=== PATIENT | male | born 1990 | race Caucasian/White ===

== ENCOUNTER 2025-02-24 00:50 | Emergency (ER) | payer OTHER ==
[2025-02-24] MEDS ORDERED: Midazolam In 0.9 % NaCl/PF 100 ML IV SCH (01:15)
[2025-02-24 01:28] LABS: Actual Bicarbonate (HCO3a) 19.4 mEq/L (22-28); Analyzer IN Cardio ER; Base Excess (BEa) -6.4 mEq/L (-2.0 to +3.0); CO2 Tension 39.4 mmHg (35.0-45.0); Calcium, Ionized (arterial) 1.10 mmol/L (1.12-1.30); Hematocrit-ABG 38 % (42.0-52.0); Hemoglobin (Hb) 12.8 g/dL (14.0-18.0); O2 Tension (PaO2), arterial 360.3 mmHg (80.0-100.0); Potassium - ABG Lab 3.25 mmol/L (3.70-5.30); pH, Arterial 7.310 (7.35-7.45)
[2025-02-24 01:30] LABS: #Basophils Less than 0.03 10x3/uL (0.0-0.2); #Eosinophils Less than 0.03 10x3/uL (0.0-0.7); #Monocytes 0.82 10x3/uL (0.11-0.59); #Neutrophils 10.62 10x3/uL (1.40-6.50); %Basophils 0.2 % (0.0-1.0); %Eosinophils 0.2 % (0.0-10.0); %Lymphocytes 4.5 % (21.0-51.0); %Monocytes 6.7 % (0.0-10.0); %Neutrophils 86.4 % (42.0-75.0); Hematocrit 39.2 % (42.0-52.0); Hemoglobin 12.9 g/dL (14.0-18.0); Mean Corpuscular Hemoglobin 27.9 pg (27.0-31.0); Mean Corpuscular Volume 84.8 fL (78.0-98.0); Platelet Count 192 10x3/uL (130-400); Red Blood Cell (RBC) Count 4.62 mill/uL (4.70-6.10); White Blood Cell (WBC) Count 12.28 10x3/uL (4.8-10.8)
[2025-02-24 01:41] LABS: Actual Bicarbonate (HCO3v) 19.0 mEq/L (22-28); Analyzer IN Cardio ER; Base Excess -6.5 mEq/L (-2.0 to +3.0); Calcium, Ionized (venous) 1.06 mmol/L (1.16-1.32); Chloride (VBG) 108 mmol/L (98-106); Hematocrit-VBG 40 % (42.0-52.0); Hemoglobin (Hb) 13.5 g/dL (13.2-17.3); Potassium (VBG) 3.26 mmol/L (3.70-5.30); Sodium 141 mmol/L (133-146)
[2025-02-24 01:47] LABS: Cocaine Metabolite Screen Negative (Negative); THC/Cannabinoid Screen Negative (Negative); Tricyclic Screen Negative (Negative)
[2025-02-24 01:48] LABS: Acetaminophen Less than 10 mcg/mL (Less than 10); Lipase 32 U/L (8-78); Magnesium 2.2 mg/dL (1.6-2.6); Salicylate Less than 8.0 mg/dL (Less than 8.0)
[2025-02-24 01:50] LABS: Bacteria/HPF None Seen HPF (None Seen); CAUTI Indications for Culture Dysuria,urgency,freq; Glucose, Urine (Dipstick) 100 mg/dL (Negative); Leukocyte Negative Leu/uL (Negative); Protein, Urine (Dipstick) 200 mg/dL (Neg-Trace); Specific Gravity, Urine 1.017 (1.002-1.036)
[2025-02-24 01:50] LABS: ALT (SGPT) 1566 U/L (Less than 45); AST (SGOT) 1212 U/L (11-34); Albumin 4.0 g/dL (3.1-4.5); Alkaline Phosphatase 55 U/L (40-110); Anion Gap 16 mmol/L (10-20); BUN (Urea Nitrogen) 17 mg/dL (8.9-20.6); Bilirubin, Total 0.6 mg/dL (0.3-1.2); CK (CPK) 324 U/L (30-200); Calc. Creatinine Clearance 0 mL/min (70-130); Calcium 8.4 mg/dL (7.8-10.44); Carbon Dioxide 19 mmol/L (22-29); Chloride 108 mmol/L (98-107); Globulin 2.7 g/dL (2.4-3.5); Glucose 133 mg/dL (70-105); Potassium 3.4 mmol/L (3.5-5.1); Sodium 140 mmol/L (136-145)
[2025-02-24 01:52] LABS: Urine Culture Reflex No No
[2025-02-24] MEDS ORDERED: cefTRIAXone (ROCEPHIN) 2 GM VIAL ONE (04:38)
[2025-02-24] MEDS ORDERED: Vancomycin 1 GM/200 ML (FROZEN) BAG ONE (06:43)
[2025-02-24] MEDS ORDERED: Magnesium 2 GM/50 ML BAG (IN WATER) ONE ×2 (06:47→07:39)
[2025-02-24] MEDS ORDERED: Norepinephrine 8 MG/0.9% NS 250 ML ONE (07:13)
[2025-02-24] MEDS ORDERED: Iopamidol-370 76% 500 ML MDV (1 ML CHARGE) ONE (11:40)
== END 2025-02-24 08:03 | disposition short-term general hospital (02) ==
LOC: ERS 00:50 → EEVIPCON 00:50 → ERS 08:03
DX: I46.9 Cardiac arrest, cause unspecified (principal); K72.90 Hepatic failure, unspecified without coma; J18.9 Pneumonia, unspecified organism; F12.929 Cannabis use, unspecified with intoxication, unspecified; D72.829 Elevated white blood cell count, unspecified
CPT/HCPCS: 36415; 36416; 51702; 70450; 71045; 71275; 72125; 80053; 80306; 80307; 81001; 82550; 82805; 83605; 83690; 83735; 84484; 85025; 87086; 96365; 96366; 96367; 96374; 96375; J0696; J2250; J3373; J3475; Q9967